=== PATIENT | male | born 1970 | race Caucasian/White ===

== ENCOUNTER 2024-08-16 09:39 | Day surgery (SDC) | payer OTHER ==
[2024-08-15 09:24] VITALS: BMI 26.3
[~2024-08-16 09:39] MED LIST: LIDOCAINE 1% (10MG/ML) FOR IV START INTRADERMA PRN; ONDANSETRON 4 MG/2 ML VIAL IVP PRN
[2024-08-16 10:02] VITALS: RESP 18; TEMP 97.1
[2024-08-16] MEDS: IV FLUID CONTINUATION 1,000 ML IV ONE (10:16)
[2024-08-16] MEDS: LACTATED RINGERS 1,000 ML IV SCH (10:20)
[2024-08-16] MEDS ORDERED: PROPOFOL 10 MG/ML 20 ML VIAL IV ONE (10:48)
--- NOTE | 2024-08-16 11:05 | P.PCN ---
Date of Procedure: 08/16/24 Procedure(s) Performed: BRIEF HISTORY: Patient is a 53-year-old pleasant white male scheduled for an elective colonoscopy as a part of evaluation of longstanding history of Crohn's Colitis diagnosed in 2011. He recently had a flareup with diarrhea and rectal bleeding and was treated with tapering doses of prednisone and just finished a week ago. Currently having 1 or 2 bowel movements daily with no blood or mucus in the stool. Maintained on Lialda 2 tablets daily. PROCEDURE PERFORMED: Colonoscopy with biopsy. PREOPERATIVE DIAGNOSIS: Has a history of Crohn's colitis. IV sedation per Anesthesia. PROCEDURE: After informed consent was obtained, the patient, was brought into the endoscopy unit. IV sedation was administered by Anesthesia under continuous monitoring. Digital rectal examination was normal. Initially the Olympus CF-160 flexible video colonoscope was then inserted in the rectum, gradually advanced into the cecum without any difficulty. Careful examination was performed as the scope was gradually being withdrawn. Ileocecal valve and the appendiceal orifice were visualized and appeared normal. Prep was excellent. Terminal ileum appeared entirely normal. Mucosa of the cecum, ascending colon, transverse colon, descending colon, normal. There was mild mucosal erythema and friability in the distal sigmoid colon and proximal rectum extending from 7 to 20 cm from anal verge and multiple biopsies were done from this area. The distal rectum appeared normal. . Retroflexion was performed in the rectum and no lesions were seen. The patient tolerated the procedure well. IMPRESSION: Mild colitis with mucosal erythema and friability noted in the proximal rectum and distal sigmoid colon extending from 7 to 20 cm from anal verge status post multiple biopsies Rest of the colon and terminal ileum appeared normal. RECOMMENDATIONS: Findings of this examination were discussed with the patient as well as his family. He was advised to follow-up with the biopsy results. He will be seen in the office in 2 weeks. Recommended repeat colonoscopy in 2 years..
[2024-08-16 11:29] VITALS: BP 131/78; PULSE 62
== END 2024-08-16 11:55 ==
LOC: ORWHC2ENDO 09:39
PROVIDERS: ATTEND Internal Medicine Gastroenterology
DX: K62.89 Other specified diseases of anus and rectum (principal); K50.10 Crohn's disease of large intestine without complications; E03.9 Hypothyroidism, unspecified; Z79.899 Other long term (current) drug therapy
CPT/HCPCS: 88305; 45380; J2704